=== PATIENT | female | born 1980 | race African-American/Black ===

== ENCOUNTER 2018-04-27 10:19 | Emergency (ER) | payer SELFPAY ==
[~2018-04-27] VITALS: Ht 154.9 cm; Wt 66.4 kg
[2018-04-27 10:23] VITALS: TEMP 97.2
[2018-04-27 10:58] LABS: BASO % 0.6 % (0.0-2.0); EOS # 0.1 (0.0-0.7); EOS % 1.4 % (0-4.0); GRAN # 3.6 (1.4-6.5); GRAN % 51.6 % (42.2-75.2); HEMATOCRIT 41.7 % (37.0-47.0); HEMOGLOBIN 14.2 g/dl (12.5-16.0); LYMPH # 2.5 (1.2-3.4); LYMPH % 36.1 % (20.0-51.0); MEAN CELL VOLUME 92 fl (80.0-100.0); MEAN CORPUSCULAR HEMOGLOBIN 31 pg (27.0-31.0); MEAN CORPUSCULAR HGB CONC 34 g/dl (33.0-37.0); MEAN PLATELET VOLUME 10.2 fl (7.4-10.4); MONO # 0.7 (0.1-0.6); MONO % 10.2 % (1.7-9.3); PLATELET COUNT 319 K/mm3 (130-400); RED BLOOD COUNT 4.54 M/mm3 (4.10-5.30); REDCELL DISTRIBUTION WIDTH-CV 11.9 % (11.5-14.5)
[2018-04-27 11:05] LABS: ALBUMIN 4.1 gm/dL (3.5-5.0); BILIRUBIN,TOTAL 0.9 mg/dL (0.0-1.0); CALCIUM 9.3 mg/dL (8.4-10.2); CREATININE, serum 0.89 mg/dL (0.52-1.25); POTASSIUM 3.9 mmol/L (3.4-5.0); TOTAL PROTEIN 7.4 gm/dL (6.4-8.2)
[2018-04-27 11:07] LABS: COLLECTION METHOD CATHETER
[2018-04-27 11:18] LABS: MUCOUS Present /lpf; PH 5 (5-8); SQUAMOUS EPITHELIAL 0-2 /hpf; URINE APPEARANCE Clear; URINE BACTERIA Rare /hpf; URINE BILIRUBIN Negative (NEGATIVE); URINE BLOOD 3+ (NEGATIVE); URINE COLOR Yellow; URINE GLUCOSE Negative (NEGATIVE); URINE KETONE Trace (NEGATIVE); URINE LEUKOCYTE ESTERASE Negative (NEGATIVE); URINE NITRATE Negative (NEGATIVE); URINE PROTEIN(semi-quant) 1+ (NEGATIVE); URINE RBC 0-2 /hpf; URINE UROBILINOGEN Negative (NEGATIVE)
[2018-04-27] MEDS ORDERED: NORCO 325 MG-51 TAB PO (12:52)
[2018-04-27] MEDS ORDERED: TRI-SPRINTEC 281 TAB PO (13:02)
[2018-04-27 13:13] VITALS: BP 120/74; PULSE 90
== END 2018-04-27 13:17 | disposition home or self-care (01) ==
LOC: COL.ER 10:19
PROVIDERS: Physician Assistant
DX: N93.9 Abnormal uterine and vaginal bleeding, unspecified (principal); R10.2 Pelvic and perineal pain; F17.210 Nicotine dependence, cigarettes, uncomplicated; Z90.721 Acquired absence of ovaries, unilateral
CPT/HCPCS: J2270; J2765; J7030

== ENCOUNTER 2018-11-21 21:33 | Emergency (ER) | payer MEDICAID ==
[~2018-11-21] VITALS: Ht 157.5 cm; Wt 48.6 kg
[~2018-11-21 21:33] MED LIST: NORCO 325 MG-51 TAB PO; TRI-SPRINTEC 281 TAB PO
[2018-11-21 21:36] VITALS: TEMP 97.2
[2018-11-21] MEDS ORDERED: PRENATAL MVI PO (21:40)
[2018-11-21 22:19] LABS: BASO % 0.4 % (0.0-2.0); EOS # 0.1 (0.0-0.7); EOS % 0.6 % (0-4.0); GRAN # 6.5 (1.4-6.5); GRAN % 61.8 % (42.2-75.2); HEMATOCRIT 33.4 % (37.0-47.0); HEMOGLOBIN 11.5 g/dl (12.5-16.0); LYMPH # 2.8 (1.2-3.4); MEAN CELL VOLUME 90 fl (80.0-100.0); MEAN CORPUSCULAR HEMOGLOBIN 31 pg (27.0-31.0); MEAN CORPUSCULAR HGB CONC 34 g/dl (33.0-37.0); MEAN PLATELET VOLUME 9.4 fl (7.4-10.4); MONO % 9.9 % (1.7-9.3); PLATELET COUNT 325 K/mm3 (130-400)
[2018-11-21 22:34] LABS: ALANINE AMINOTRANSFERASE 8 U/L (9-52); ALBUMIN 3.8 gm/dL (3.5-5.0); ALKALINE PHOSPHATASE 57 U/L (50-136); ANION GAP 10 mmol/L (7-16); AST,SGOT 14 U/L (15-37); BILIRUBIN,TOTAL 0.2 mg/dL (0.0-1.0); BLOOD UREA NITROGEN 12 mg/dL (7-17); C-REACTIVE PROTEIN < 0.5 mg/dL (0.0-0.9); CARBON DIOXIDE 20 mmol/L (22-30); CHLORIDE 104 mmol/L (98-107); CREATININE, serum 0.55 (0.52-1.25); GLUCOSE 77 mg/dL (74-106); POTASSIUM 3.7 mmol/L (3.4-5.0); SODIUM 134 mmol/L (137-145); TOTAL PROTEIN 6.8 gm/dL (6.4-8.2)
[2018-11-21 22:54] LABS: COLLECTION METHOD CLEAN CATCH
[2018-11-21 23:01] LABS: MUCOUS Present /lpf; PH 5 (5-8); SQUAMOUS EPITHELIAL 0-2 /hpf; URINE APPEARANCE Clear; URINE BACTERIA None Seen /hpf; URINE BILIRUBIN Negative (NEGATIVE); URINE BLOOD Negative (NEGATIVE); URINE COLOR Yellow; URINE GLUCOSE Negative (NEGATIVE); URINE KETONE 1+ (NEGATIVE); URINE LEUKOCYTE ESTERASE Negative (NEGATIVE); URINE NITRATE Negative (NEGATIVE); URINE PROTEIN(semi-quant) Negative (NEGATIVE); URINE RBC 0-2 /hpf; URINE UROBILINOGEN Negative (NEGATIVE)
[2018-11-21] MEDS ORDERED: FLAGYL500 MG PO (23:27)
[2018-11-22 00:02] VITALS: BP 101/66; PULSE 86
== END 2018-11-22 00:04 | disposition home or self-care (01) ==
LOC: COL.ER 21:33
PROVIDERS: Family Medicine
DX: O46.91 Antepartum hemorrhage, unspecified, first trimester (principal); O23.591 Infection of other part of genital tract in pregnancy, first trimester; B96.89 Other specified bacterial agents as the cause of diseases classified elsewhere; Z3A.11 11 weeks gestation of pregnancy; Z87.59 Personal history of other complications of pregnancy, childbirth and the puerperium
CPT/HCPCS: J7030

== ENCOUNTER 2019-01-22 14:52 | Outpatient (CLI) | payer MEDICAID ==
[2019-01-22] VITALS (9 sets, daily range): BP systolic 92–111; BP diastolic 51–69; PULSE 78–93; TEMP 97.9–98.2
[~2019-01-22] VITALS: Ht 154.9 cm; Wt 52.7 kg
[~2019-01-22 14:52] MED LIST changes: +FLAGYL500 MG PO; +PRENATAL MVI PO
[2019-01-22 16:01] LABS: COLLECTION METHOD CATHETER
[2019-01-22 16:12] LABS: BASO % 0.4 % (0.0-2.0); EOS # 0.2 (0.0-0.7); EOS % 1.7 % (0-4.0); GRAN # 6.3 (1.4-6.5); GRAN % 66.2 % (42.2-75.2); HEMOGLOBIN 11.2 g/dl (12.5-16.0); LYMPH # 2.1 (1.2-3.4); LYMPH % 22.1 % (20.0-51.0); MEAN CELL VOLUME 95 fl (80.0-100.0); MEAN CORPUSCULAR HEMOGLOBIN 32 pg (27.0-31.0); MEAN CORPUSCULAR HGB CONC 33 g/dl (33.0-37.0); MEAN PLATELET VOLUME 10.2 fl (7.4-10.4); MONO # 0.9 (0.1-0.6); MONO % 9.1 % (1.7-9.3); PLATELET COUNT 304 K/mm3 (130-400); RED BLOOD COUNT 3.56 M/mm3 (4.10-5.30); REDCELL DISTRIBUTION WIDTH-CV 12.8 % (11.5-14.5)
[2019-01-22 16:16] LABS: BILIRUBIN,TOTAL 0.2 mg/dL (0.0-1.0); CALCIUM 9.2 mg/dL (8.4-10.2); CREATININE, serum 0.62 (0.52-1.25); POTASSIUM 3.6 mmol/L (3.4-5.0); TOTAL PROTEIN 7.3 gm/dL (6.4-8.2)
[2019-01-22 16:18] LABS: MUCOUS Present /lpf; PH 6 (5-8); SQUAMOUS EPITHELIAL 0-2 /hpf; URINE APPEARANCE Clear; URINE BACTERIA None Seen /hpf; URINE BILIRUBIN Negative (NEGATIVE); URINE BLOOD Negative (NEGATIVE); URINE COLOR Yellow; URINE GLUCOSE Negative (NEGATIVE); URINE KETONE Trace (NEGATIVE); URINE LEUKOCYTE ESTERASE Negative (NEGATIVE); URINE NITRATE Negative (NEGATIVE); URINE PROTEIN(semi-quant) Negative (NEGATIVE); URINE RBC 0-2 /hpf; URINE UROBILINOGEN Negative (NEGATIVE); URINE WBC 0-2 /hpf
[2019-01-22 16:23] LABS: HEMATOCRIT 33.7 % (37.0-47.0)
[2019-01-22 16:25] LABS: TRICYCLIC ANTIDEPRESS URINE NEGATIVE
== END 2019-01-22 17:10 | disposition home or self-care (01) ==
LOC: LDRO 14:52 → LDR 15:12 → LDRO 17:10
PROVIDERS: Obstetrics & Gynecology
DX: O42.912 Preterm premature rupture of membranes, unspecified as to length of time between rupture and onset of labor, second trimester (principal); Z3A.19 19 weeks gestation of pregnancy
CPT/HCPCS: OP

== ENCOUNTER 2019-04-23 12:27 | Outpatient (CLI) | payer MEDICAID ==
[2019-04-23] VITALS (8 sets, daily range): BP systolic 90–117; BP diastolic 54–66; PULSE 83–102; TEMP 97.9
[~2019-04-23] VITALS: Ht 157.5 cm; Wt 60.5 kg
--- NOTE | 2019-04-23 12:45 | NUR ---
Patient ambulatory to LDR4. In LDR patient appears very uncomfortable, squatting on the ground and breathing through contractions. Assisted patient to bed and helped her change into gown. Patient states that contractions started around 2 am and got worse about 2 hours ago. She is a G2L0 at 32.2 weeks gestation. This nurse attempts to perform SVE, patient screams and climbs up the bed. Dr. Panchal on unit and asked to come to room. SVE by Dr. Panchal closed/thick/high. EFM explained and applied. VS obtained. Patient states that she has had nausea/vomiting since yesterday evening. Plan of care and orders reviewed.
--- NOTE | 2019-04-23 13:20 | NUR ---
IV started in left forearm, labs drawn, LR bolus started.
[2019-04-23 13:40] LABS: BASO % 0.4 % (0.0-2.0); EOS # 0.1 (0.0-0.7); EOS % 0.7 % (0-4.0); GRAN # 4.6 (1.4-6.5); GRAN % 67.9 % (42.2-75.2); HEMOGLOBIN 10.5 g/dl (12.5-16.0); LYMPH # 1.3 (1.2-3.4); LYMPH % 19.2 % (20.0-51.0); MEAN CELL VOLUME 94 fl (80.0-100.0); MEAN CORPUSCULAR HEMOGLOBIN 32 pg (27.0-31.0); MEAN CORPUSCULAR HGB CONC 35 g/dl (33.0-37.0); MEAN PLATELET VOLUME 10.2 fl (7.4-10.4); MONO # 0.8 (0.1-0.6); MONO % 11.1 % (1.7-9.3); PLATELET COUNT 276 K/mm3 (130-400); RED BLOOD COUNT 3.24 M/mm3 (4.10-5.30); REDCELL DISTRIBUTION WIDTH-CV 12.7 % (11.5-14.5)
[2019-04-23 13:43] LABS: HEMATOCRIT 30.4 % (37.0-47.0)
[2019-04-23 14:01] LABS: ALBUMIN 3.3 gm/dL (3.5-5.0); BILIRUBIN,TOTAL 0.5 mg/dL (0.0-1.0); CALCIUM 8.8 mg/dL (8.4-10.2); CREATININE, serum 0.59 (0.52-1.25); POTASSIUM 3.9 mmol/L (3.4-5.0); TOTAL PROTEIN 6.6 gm/dL (6.4-8.2)
--- NOTE | 2019-04-23 14:45 | NUR ---
Patient sleeping, arouses when names is called. CTX q7-15 minutes per toco, patient reports that she is feeling them. Patient eating ice chips between resting and denies nausea. She states that her friends are bringing her food. Dr. Panchal called and updated on patient's status and lab results. Orders for SVE, CC UA and to DC home if SVE closed, UA WNL, and eating without nausea/vomiting. SVE closed/thick/high. Plan of care reviewed with patient. UA collected.
[2019-04-23 15:01] LABS: COLLECTION METHOD CLEAN CATCH
[2019-04-23 15:13] LABS: PH 8 (5-8); SQUAMOUS EPITHELIAL 0-2 /hpf; URINE APPEARANCE Clear; URINE BACTERIA None Seen /hpf; URINE BILIRUBIN Negative (NEGATIVE); URINE BLOOD Negative (NEGATIVE); URINE COLOR Yellow; URINE GLUCOSE Negative (NEGATIVE); URINE KETONE 1+ (NEGATIVE); URINE LEUKOCYTE ESTERASE Negative (NEGATIVE); URINE NITRATE Negative (NEGATIVE); URINE PROTEIN(semi-quant) Negative (NEGATIVE); URINE RBC 0-2 /hpf; URINE UROBILINOGEN Negative (NEGATIVE); URINE WBC 0-2 /hpf
[2019-04-23 15:25] LABS: TRICYCLIC ANTIDEPRESS URINE NEGATIVE
--- NOTE | 2019-04-23 16:00 | NUR ---
Patient eating and drinking without nausea. Contractions q3-5 min per toco, patient uncomfortable through them. IVF restarted. SVE without change.
--- NOTE | 2019-04-23 17:00 | NUR ---
Irregular contractions continue, q4-6 minutes, patient breathing through some of them, but talks through others. Feeling better after tylenol and visteral. Discharge instructions reviewed with patient.
== END 2019-04-23 17:10 | disposition home or self-care (01) ==
LOC: LDRO 12:27 → LDR 13:00 → LDRO 13:00 → LDR 17:10
PROVIDERS: Obstetrics & Gynecology
DX: O62.9 Abnormality of forces of labor, unspecified (principal); Z3A.32 32 weeks gestation of pregnancy
CPT/HCPCS: OP; J7120

== ENCOUNTER 2019-05-14 13:57 | Outpatient (CLI) | payer MEDICAID ==
[~2019-05-14] VITALS: Ht 157.5 cm; Wt 62.7 kg
--- NOTE | 2019-05-14 13:58 | NUR ---
Pt arrives on unit ambulatory with friend. States contractions x 5 days q 20-30 minutes. Denies LOF, vaginal bleeding, and reports GFM. Changed into clean gown. EFM and toco applied. VSS. SVE per this RN CL/H. Admission assessment completed. Dr. Panchal notified. See physician notification. Pt updated on POC. Safety reviewed. Bed locked in low position. Call light within reach. No questions or concerns at this time.
--- NOTE | 2019-05-14 14:05 | NUR ---
Pt denies wanted any medications for pain relief.
[2019-05-14 14:51] VITALS: BP 108/68; PULSE 90
--- NOTE | 2019-05-14 14:51 | NUR ---
SVE unchanged. Taken off monitors. Discharge instructions given. Pt verbally frustrated with discharge. Educated on gestational age, pain management, etc. Leaves unit frustrated with friend.
== END 2019-05-14 15:00 | disposition home or self-care (01) ==
LOC: LDRO 13:57 → LDR 14:00 → LDRO 15:00
DX: O62.9 Abnormality of forces of labor, unspecified (principal); Z3A.35 35 weeks gestation of pregnancy
CPT/HCPCS: OP

== ENCOUNTER 2019-05-28 09:36 | Outpatient (CLI) | payer MEDICAID ==
[~2019-05-28] VITALS: Ht 157.5 cm; Wt 64.5 kg
--- NOTE | 2019-05-28 09:40 | NUR ---
Patient ambulates to LR2, changed into gown, FHR/TOCO monitors placed and explained. Patient denies any regular contractions/leaking of fluid/vaginal bleeding/decreased movement. Plan of care discussed and questions answered. Consent gone over and signed and assessment completed. 1000: IV placed in left upper arm, blood obtained, flushed and patient tolerates well.
[2019-05-28 10:15] VITALS: BP 113/72; PULSE 75; TEMP 97.6
--- NOTE | 2019-05-28 10:33 | NUR ---
Dr. Gonzalez at bedside and assessing patient. SONO done at this time and position of fetus breech confirmed. on his way and order to give terbutaline at this time. 1039: Terbutaline 0.25mg given in left upper arm. Patient tolerates well. 1041: Dr. Panchal at bedside assessing patient and FHR strip. Discussing procedure and answers questions. 1042: Dr. Panchal orders to remove monitors at this time. Dr. Gonzalez and Bethany Roland CRNA at bedside. Dr. Panchal and attempt version, patient tolerates well. 1050: Unsuccessful version and plan of care discussed. Discussion of if fetus still in breech postition closer to due date and patient verbalizes understanding. 1051: FHR/TOCO monitors back on patients abdomen. Plan of care discussed and meal tray ordered for patient.
[2019-05-28 10:45] VITALS: BP 112/74; PULSE 74
[2019-05-28 11:15] VITALS: BP 113/76; PULSE 102
[2019-05-28 11:45] VITALS: BP 107/68; PULSE 102
--- NOTE | 2019-05-28 12:20 | NUR ---
IV discontinued and patient tolerates well.
[2019-05-28 12:22] VITALS: BP 110/77; PULSE 120
--- NOTE | 2019-05-28 12:22 | NUR ---
Patient done eating meal and off monitors. Discharge instructions gone over and patient verbalizes understanding. Papers signed.
== END 2019-05-28 12:35 | disposition home or self-care (01) ==
LOC: LDRO 09:36 → LDR 09:37 → LDRO 12:35
DX: O80 Encounter for full-term uncomplicated delivery (principal); Z3A.37 37 weeks gestation of pregnancy
CPT/HCPCS: OP; J3105

== ENCOUNTER 2019-06-10 06:20 | Inpatient (IN) | payer MEDICAID ==
[2019-06-10] VITALS (16 sets, daily range): BP systolic 98–121; BP diastolic 57–86; PULSE 56–87; TEMP 97.3–98.3
[~2019-06-10] VITALS: Ht 157.6 cm; Wt 65.5 kg
[2019-06-10 10:59] LABS: BASO % 0.5 % (0.0-2.0); EOS # 0.1 (0.0-0.7); EOS % 0.6 % (0-4.0); GRAN # 5.4 (1.4-6.5); GRAN % 66.8 % (42.2-75.2); HEMOGLOBIN 11.5 g/dl (12.5-16.0); LYMPH # 1.7 (1.2-3.4); LYMPH % 20.5 % (20.0-51.0); MEAN CELL VOLUME 93 fl (80.0-100.0); MEAN CORPUSCULAR HEMOGLOBIN 31 pg (27.0-31.0); MEAN CORPUSCULAR HGB CONC 33 g/dl (33.0-37.0); MONO # 0.9 (0.1-0.6); MONO % 10.7 % (1.7-9.3); PLATELET COUNT 332 K/mm3 (130-400); RED BLOOD COUNT 3.77 M/mm3 (4.10-5.30); REDCELL DISTRIBUTION WIDTH-CV 12.6 % (11.5-14.5)
[2019-06-10 11:05] LABS: TRICYCLIC ANTIDEPRESS URINE NEGATIVE
--- NOTE | 2019-06-10 11:22 | NUR ---
1000 - Pt arrives ambulatory to unit with significant other, taken to room, and changed into gown. Pt denies leaking of fluid, vaginal bleeding, or contractions, and reports good movement. EFM explained and placed, IV started in left forearm, LR started per protocol, assessment complete, vitals taken, consents signed. 1045 - RN at bedside, audible decel noted in FHR, decel disconnected on FHR strip. Pt repositioned to right side, FHR returned to baseline.
[2019-06-11 01:30] VITALS: BP 103/60; PULSE 79; TEMP 97.6
[2019-06-11 05:30] VITALS: BP 100/53; PULSE 64; TEMP 97.4
[2019-06-11 08:00] VITALS: BP 109/69; PULSE 78; TEMP 97.8
[2019-06-11 08:33] LABS: HEMATOCRIT 30.2 % (37.0-47.0); HEMOGLOBIN 9.9 g/dl (12.5-16.0)
[2019-06-11] MEDS ORDERED: IBU600 MG PO (09:06)
[2019-06-11] MEDS ORDERED: PERCOCET 325 MG1 TA2 PO (09:06)
--- NOTE | 2019-06-11 09:23 | NUR ---
Initial visit; Parents thanked Loans Consultant for offering congratulations and God's blessings for the of their daughter. Loans Consultant thanked family for choosing [facility].
--- NOTE | 2019-06-11 10:28 | NUR ---
BETH ly responded to a social insurance specialist consult for the patient due to presence of illegal drugs and patient has a history of anxiety. The patient's nurse reports the mother is appropriate with the baby and the baby was full term. BETH ly met with the patient and the FOB. The patient reports this is her only child. The patient reports she has all the supplies she needs for the baby and is on WIC. The patient had a positive UDS from cannabinoid on 11/21/2018, during . The patient had a negative UDS at admission. There was not a UDS on the patient's baby, but a cord blood was sent out for testing, awaiting results. BETH ly addressed the patient's anxiety. The patient reports she was to someone in the and she would get anxiety when he deployed. She reports she has not had anxiety since. BETH ly provided a list of mental health resources for the patient. BETH ly addressed marijuana usage. Prior to pregnancay the patient reports she used marijuana on weekends. She reports during the week is it strictly work. The patient reports she does not need treatment for marijuana usage. BETH ly provided educational handout on the effects of marijuana. BETH ly collaborated the above information with the patient's nurse. CPS report was made, report # [id number]
[2019-06-11 16:30] VITALS: BP 98/68; PULSE 75; TEMP 97.8
[2019-06-11 20:00] VITALS: BP 99/56; PULSE 78; TEMP 98.2
[2019-06-12 09:00] VITALS: BP 124/85; PULSE 81; TEMP 98
--- NOTE | 2019-06-12 09:54 | NUR ---
Initial visit: Parents thanked Physician Gynecologist for offering congratulations and God's blessings for the of their daugher. Physician Gynecologist thanked family for choosing [facility].
[2019-06-12 15:26] VITALS: BP 111/70; PULSE 68; TEMP 98
[2019-06-12 20:30] VITALS: BP 116/73; PULSE 78; TEMP 97.6
[2019-06-13 07:20] VITALS: BP 120/64; PULSE 66; TEMP 98
--- NOTE | 2019-06-13 14:32 | NUR ---
Patient's infant's cord blood was negative for illegal drugs in system.
== END 2019-06-13 11:55 | disposition home or self-care (01) | DRG 788 ==
LOC: OB 06:20
PROVIDERS: ADMIT Obstetrics & Gynecology
PROC: 10D00Z1 Extraction of Products of Conception, Low, Open Approach (ICD-10-PCS; principal; 2019-06-10)
DX: O32.1XX0 Maternal care for breech presentation, not applicable or unspecified (principal); O99.013 Anemia complicating pregnancy, third trimester; D64.9 Anemia, unspecified; Z3A.39 39 weeks gestation of pregnancy; Z37.0 Single live birth; Z88.2 Allergy status to sulfonamides
CPT/HCPCS: J0690; J2370; J2405; J2590; J3010; J7120